=== PATIENT | male | born 1980 | race Caucasian/White ===

== ENCOUNTER 2022-04-28 11:53 | Inpatient (IN) | payer OTHER ==
[~2022-04-28] VITALS: Ht 182.9 cm; Wt 86.6 kg
--- NOTE | 2022-04-28 12:05 | NUR ---
[id number], INTENTIONAL INGESTION, ANTIFREEZE APPROX 120Z MIXED W GATORADE. PER REPORT, POSTED ON FACEBOOK HE IS SUICIDAL. WILL BE ON 5150 HOLD. PLACED IN BED, RESPONDING TO VERBAL STIMULI, BREATHING EVEN AND UNLABORED SATURATING AT 97%RA. WILL CONTINUE TO MONITOR.
--- NOTE | 2022-04-28 12:15 | NUR ---
BLOOD DRAWNAND SENT TO LAB
[2022-04-28] MEDS ORDERED: FOMEPIZOLE IV ONE (12:30)
[2022-04-28] MEDS ORDERED: D5W IV ONE (12:30)
[2022-04-28] MEDS ORDERED: FOMEPIZOLE 1.5 G in IV D5W 100 ML IV ONE (12:30)
[2022-04-28] MEDS ORDERED: IV NS 0.9% 1,000 ML BAG IV ONE (12:30)
[2022-04-28 12:36] LABS: BASOPHILS % (AUTO) 0.5 % (0.0-2.0); EOSINOPHILS % (AUTO) 0.5 % (0.0-6.0); HEMATOCRIT 52 % (39-51); HEMOGLOBIN 16.8 g/dL (13.5-17.5); LYMPHOCYTES # (AUTO) 1.3 K/uL (0.8-4.8); LYMPHOCYTES % (AUTO) 28.1 % (20.0-44.0); MEAN CORPUSCULAR HGB CONC 32 g/dl (31.0-36.0); MEAN CORPUSCULAR VOLUME 96 fL (80-96); MONOCYTES # (AUTO) 0.4 K/uL (0.1-1.30); MONOCYTES % (AUTO) 8.9 % (2.0-12.0); PLATELET COUNT (AUTO) 272 K/uL (150-450); RED BLOOD CELL COUNT(AUTO) 5.42 MIL/uL (4.5-6.0); WHITE BLOOD COUNT (AUTO) 4.8 K/uL (4.3-11.0)
--- NOTE | 2022-04-28 12:51 | NUR ---
SWAB FOR COVID19 AND URINE SAMPLE SENT TO LAB
[2022-04-28 12:57] LABS: ALANINE AMINOTRANSFERASE 48 U/L (12-78); ALBUMIN 3.8 g/dL (3.4-5.0); ALKALINE PHOSPHATASE 68 U/L (46-116); ASPARTATE AMINOTRANSFERASE 25 U/L (15-37); BILIRUBIN,DIRECT 0.1 mg/dL (0.0-0.2); BILIRUBIN,TOTAL 0.4 mg/dL (0.2-1.0); CALCIUM, SERUM 8.9 mg/dL (8.5-10.1); CARBON DIOXIDE 26 mmol/L (21-32); CHLORIDE 104 mmol/L (98-107); CREATININE 1.1 mg/dL (0.6-1.3); GLUCOSE 75 mg/dL (74-106); SODIUM SERUM 139 mmol/L (136-145); TOTAL PROTEIN, SERUM 7.5 g/dL (6.4-8.2); UREA NITROGEN, BLOOD 10 mg/dL (7-18)
[2022-04-28 12:59] LABS: ACETAMINOPHEN 0 ug/ml (10-30); ALCOHOL, BLOOD < 3 mg/dL (0-0)
[2022-04-28] MEDS ORDERED: ONDANSETRON HCL/PF 4 MG/2 ML VIAL IV ONE (13:30)
[2022-04-28] MEDS ORDERED: ONDANSETRON HCL/PF 4 MG/2 ML VIAL ONE (13:54)
--- NOTE | 2022-04-28 14:25 | NUR ---
CALLED POISON CONTROLREGARDING PT CLINICALS SPOKE TO DON -WAS INSTRUCTED TO RETRIEVE BASIC LABS FOR THE PT -OBSERVE TYLENO/ASPIRIN/ALCOHOL/URINE LEVELS - ADMINISTER FOMEPIZOL TO THE PT MD MCLEAN WAS NOTIFIED
[2022-04-28 14:30] LABS: BILIRUBIN,URINE NEGATIVE (NEGATIVE); COLOR,URINE YELLOW (YELLOW); LEUKOCYTE ESTERASE ,URINE NEGATIVE (NEGATIVE); NITRITE, URINE NEGATIVE (NEGATIVE); PROTEIN,URINE NEGATIVE (NEGATIVE); UGLUCOSE NEGATIVE (NEGATIVE); UROBILINOGEN,URINE 0.2 EU/dL (0.2)
--- NOTE | 2022-04-28 14:55 | NUR ---
room 104
[2022-04-28] MEDS ORDERED: ONDANSETRON HCL/PF 4 MG/2 ML VIAL IVP PRN (15:30)
[2022-04-28] MEDS ORDERED: MAGNESIUM HYDROXIDE 30 ML UDC PO PRN (15:30)
[2022-04-28] MEDS ORDERED: ACETAMINOPHEN 325 MG TABLET PO PRN (15:30)
[2022-04-28] MEDS ORDERED: ZOLPIDEM TARTRATE 5 MG TABLET PO PRN (15:30)
--- NOTE | 2022-04-28 15:30 | NUR ---
RECIEVE CALL FROM POISON CONTROL:RECOMENDATION, REPEAT CHEMISTRY PANEL, SERUM OSMOLALITY. WILL INFORM DR SLAUGHTER.
--- NOTE | 2022-04-28 15:35 | NUR ---
REPORT GIVEN TO MANUEL RICHEY ROOM 104 FOR HAILEE
[2022-04-28 17:17] VITALS: BP 125/84
--- NOTE | 2022-04-28 17:54 | NUR ---
[employer] Estate Services Coordinator notes Recieved pt from ER under car5e DOctor Charanjit, with dx OD, pt is alert orientedx4, o2 sat in room air 95%, placed on tele monitor SR HR 61, RFA and LFA in place, flushed well. Belongings checked, call light within reach, seater at bedside, will continue to monitor closely.
[2022-04-28] MEDS: MAG HYDROX/AL HYDROX/SIMETH 30 ML UDC PO PRN (18:49)
--- NOTE | 2022-04-28 18:52 | NUR ---
telegraph office telephone clerk note c\o abdominal discomfort Maalox given as ordered ,will f\u
--- NOTE | 2022-04-28 20:10 | NUR ---
RN OPENING NOTE; RECEIVED PT IN BED.AAOX3,ABLE TO MAKE NEEDS KNOWN,KIRSTIN WELL ON RM AIR KIRSTIN WELL SATTING 98%,NO SOB/DISTRESS NOTED,NO COMPLAIN OF PAIN/DISCOMFORT AT THIS TIME,IV ACCESS ON RFA 18G AND LFA 20G PATENT AND INTACT,SAFETY MEASURE INPLACE,CALL LIGHT WITHIN REACH,WILL CONTINUE TO MONITOR.
[2022-04-28 22:00] VITALS: BP 112/64
[2022-04-28] MEDS: FOMEPIZOLE IV SCH (23:40)
[2022-04-28] MEDS: D5W IV SCH (23:40)
[2022-04-29] VITALS: BP 99/54
[2022-04-29 06:14] VITALS: BP 106/52
--- NOTE | 2022-04-29 06:26 | NUR ---
RN CLOSING NOTE; PATIENT IN BED AAOX3,ABLE TO MAKE NEEDS KNOWN,FRIEND AT BEDSIDE,KIRSTIN WELL ON RM AIR KIRSTIN WELL SATTING 99%,NO SOB/DISTRESS NOTED,NO COMPLAIN OF PAIN/DISCOMFORT DURING SHIFT,DUE MEDS GIVEN ORDER,ALL NEEDS ATTENDED,IV ACCESS ON RFA 18G AND LFA 20G PATENT AND INTACT,SAFETY MEASURE INPLACE,CALL LIGHT WITHIN REACH,WILL ENDORSED TO NEXT SHIFT.
[2022-04-29 06:41] LABS: BASOPHILS % (AUTO) 0.5 % (0.0-2.0); EOSINOPHILS % (AUTO) 2.9 % (0.0-6.0); HEMATOCRIT 47 % (39-51); HEMOGLOBIN 15.4 g/dL (13.5-17.5); LYMPHOCYTES # (AUTO) 1.6 K/uL (0.8-4.8); LYMPHOCYTES % (AUTO) 32.9 % (20.0-44.0); MEAN CORPUSCULAR HGB CONC 33 g/dl (31.0-36.0); MEAN CORPUSCULAR VOLUME 95 fL (80-96); MONOCYTES # (AUTO) 0.6 K/uL (0.1-1.30); MONOCYTES % (AUTO) 11.8 % (2.0-12.0); NEUTROPHILS # (AUTO) 2.6 K/uL (1.8-8.9); NEUTROPHILS % (AUTO) 51.9 % (43.0-81.0); PLATELET COUNT (AUTO) 268 K/uL (150-450); RED BLOOD CELL COUNT(AUTO) 4.93 MIL/uL (4.5-6.0)
[2022-04-29 07:15] LABS: CALCIUM, SERUM 8.4 mg/dL (8.5-10.1); CREATININE 0.9 mg/dL (0.6-1.3); MAGNESIUM 2.4 mg/dL (1.8-2.4); PHOSPHORUS 2.9 mg/dL (2.5-4.9); POTASSIUM 4.1 mmol/L (3.5-5.1)
[2022-04-29] MEDS ORDERED: AMPH12.53 PO (08:15)
--- NOTE | 2022-04-29 11:00 | NUR ---
SPOKE TO ANJUM FROM [place] [facility], PATIENT CAN NOT BE DISCHARGED YET DUE OSMOLALITY/ETHYLENE GLYCOL LEVEL RESULTS ARE NOT BACK YET, AND NEEDED 4 DOSES OF ANTIZOL, THEN CHECK CMP, OSMOLALITY/ETHYLENE GLYCOL LEVEL AFTER 4-6 HOURS GIVING THE ANTIZOL. INFORMED DR. MARGOT HUSAIN VIA TEXT. Addendum: 04/29/22 at 1434 by GRAND JOSÉ MIGUEL RICHEY SPOKE TO ANJUM FROM [place] [facility], PATIENT CAN NOT BE DISCHARGED YET DUE OSMOLALITY/ETHYLENE GLYCOL LEVEL RESULTS ARE NOT BACK YET, AND NEEDED 4 DOSES OF ANTIZOL, THEN CHECK CMP, OSMOLALITY/ETHYLENE GLYCOL LEVEL AFTER 4-6 HOURS GIVING THE ANTIZOL. INFORMED DR. MARGOT HUSAIN SECURED TEXT.
[2022-04-29] MEDS: D5W IV SCH (12:24)
[2022-04-29] MEDS: FOMEPIZOLE IV SCH (12:24)
[2022-04-29] MEDS: MAG HYDROX/AL HYDROX/SIMETH 30 ML UDC PO PRN (15:47)
--- NOTE | 2022-04-29 19:30 | NUR ---
VALUER OPENING NOTES - RECEIVED PATIENT AWAKE IN BED, FRIEND ON BEDSIDE. A/O X4. BREATHING EVEN AND NON-LABORED ON ROOM AIR. NOT IN APPARENT DISTRESS. NO C/O PAIN OR DISCOMFORT AT THIS TIME. ON TELE MONITOR READING SINUS RHYTHM AT 62 BPM. HAS THE FF IV ACCESS: RIGHT FOREARM #18G AND LEFT FOREARM #20G BOTH SALINE LOCKED. NO S/S OF INFILTRATION NOTED. PATIENT VERBALIZED THAT HE JUST WANTS TO GET THE NEXT DOSE OF ANTIZOL AND HE WILL GO HOME TONIGHT. SAFETY PRECAUTIONS IN PLACE: BED LOCKED AND IN LOW POSITIONS, SIDE RAILS UP X2, CALL LIGHT WITHIN REACH. WILL CONTINUE PLAN OF CARE.
--- NOTE | 2022-04-29 19:45 | NUR ---
NOTIFIED CHARGE NURSE AND HOSPITALIST REYNA WILLIAMSON THAT PATIENT WANTS TO LEAVE AMA. EXPLAINED TO PATIENT THE RISKS OF DOING THIS, VERBALIZED UNDERSTANDING. HAD PATIENT SIGNED THE AMA FORM.
[2022-04-29] MEDS ORDERED: FOMEPIZOLE IV SCH (20:00)
[2022-04-29] MEDS ORDERED: D5W IV SCH (20:00)
--- NOTE | 2022-04-29 20:30 | NUR ---
ANTIZOL IV HAS NOT YET BEEN DELIVERED BY PHARMACY. SPOKE TO PHARMACIST AND TOLD ME TO PICK IT UP. PATIENT REFUSED TO WAIT ANY LONGER.
--- NOTE | 2022-04-29 23:16 | NUR ---
PATIENT LEFT AT 2118 IN STABLE CONDITION, AMBULATORY, ACCOMPANIED BY FRIEND. ALL BELONGINGS TAKEN. ADVISED TO GO TO THE NEAREST ER FOR ANY EMERGENCY.
== END 2022-04-29 21:20 | disposition home or self-care (01) | DRG 812 ==
LOC: ER 11:57 → TELE1 17:01
DX: T51.8X1A Toxic effect of other alcohols, accidental (unintentional), initial encounter (principal); Z20.822 Contact with and (suspected) exposure to COVID-19; F33.2 Major depressive disorder, recurrent severe without psychotic features; F90.9 Attention-deficit hyperactivity disorder, unspecified type; Z86.73 Personal history of transient ischemic attack (TIA), and cerebral infarction without residual deficits; Y92.009 Unspecified place in unspecified non-institutional (private) residence as the place of occurrence of the external cause; F12.10 Cannabis abuse, uncomplicated; F10.10 Alcohol abuse, uncomplicated; Y90.9 Presence of alcohol in blood, level not specified; Z91.51 Personal history of suicidal behavior
CPT/HCPCS: 36415; 80048-TC; 80076-TC; 82693; 83735-TC; 84100-TC; 85025-TC; 85730-TC; 87081-TC; C9803; G0378; G0480; J1451; J2405; J7060